=== PATIENT | female | born 1990 | race Caucasian/White ===

== ENCOUNTER 2016-07-09 19:34 | Emergency (ER) | payer OTHER ==
[~2016-07-09] VITALS: Ht 152.4 cm; Wt 75.0 kg
[~2016-07-09 19:34] MED LIST: GLUCOPHAGE1000 MG PO; NEXIUM 20MG20 MG PO; NORCO 325 MG-51 TAB PO; PROFERRIN ES12 MG PO; ZOCOR 10MG10 MG PO
[2016-07-09] MEDS ORDERED: ZOLOFT 100MG100 MG (19:39)
[2016-07-09] MEDS ORDERED: DESYREL 100MG100 MG (19:40)
[2016-07-09] MEDS ORDERED: NEXPLANON68 MG ID (19:40)
[2016-07-09 21:05] LABS: INFLUENZA B NEGATIVE
[2016-07-09] MEDS ORDERED: PREDNISONE20 MG PO (21:45)
[2016-07-09 21:54] VITALS: BP 106/69; PULSE 89; TEMP 97.8
== END 2016-07-09 21:56 | disposition home or self-care (01) ==
LOC: COL.ER 19:34
PROVIDERS: Nurse Practitioner
DX: J06.9 Acute upper respiratory infection, unspecified (principal); R59.0 Localized enlarged lymph nodes; J45.909 Unspecified asthma, uncomplicated
CPT/HCPCS: J7512

== ENCOUNTER → 2016-07-27 | Outpatient (CLI) | payer OTHER ==
[~2016-07-27] MED LIST changes: +B-12 100 MCG; +DESYREL 100MG100 MG; +IMITREX 25MG TA25 MG PO; +IMITREX 6M6 MG/0.5 M SQ; +LAMICTAL 25MG T25 MG PO; +MAGNESIUM CHELA27 MG; +NEXPLANON68 MG ID; +PREDNISONE20 MG PO; +PRILOSEC 20MG20 MG PO; +PROFE180 MG PO; +VITAMIN D 50,1.25 MG PO; +ZOLOFT 100MG100 MG
== END ==
LOC: BHSO 13:30
DX: F41.1 Generalized anxiety disorder (principal)

== ENCOUNTER 2017-02-22 21:57 | Emergency (ER) | payer OTHER ==
[~2017-02-22] VITALS: Ht 152.4 cm; Wt 84.1 kg
[~2017-02-22 21:57] MED LIST changes: -B-12 100 MCG; -IMITREX 25MG TA25 MG PO; -IMITREX 6M6 MG/0.5 M SQ; -LAMICTAL 25MG T25 MG PO; -MAGNESIUM CHELA27 MG; -PRILOSEC 20MG20 MG PO; -PROFE180 MG PO; -VITAMIN D 50,1.25 MG PO
[2017-02-22 21:59] VITALS: TEMP 98
[2017-02-22] MEDS ORDERED: PRILOSEC 20MG20 MG PO (22:04)
[2017-02-22] MEDS ORDERED: IMITREX 6M6 MG/0.5 M SQ (22:05)
[2017-02-22] MEDS ORDERED: PROFE180 MG PO (22:06)
[2017-02-22] MEDS ORDERED: MAGNESIUM CHELA27 MG (22:06)
[2017-02-22] MEDS ORDERED: B-12 100 MCG (22:06)
[2017-02-22] MEDS ORDERED: VITAMIN D 50,1.25 MG PO (22:06)
[2017-02-22] MEDS ORDERED: IMITREX 25MG TA25 MG PO (22:07)
[2017-02-22] MEDS ORDERED: LAMICTAL 25MG T25 MG PO (22:08)
[2017-02-22 23:51] LABS: PH 6 (5-8); URINE APPEARANCE Hazy; URINE BACTERIA Rare /hpf; URINE BILIRUBIN Negative (NEGATIVE); URINE BLOOD 1+ (NEGATIVE); URINE COLOR Straw; URINE GLUCOSE Negative (NEGATIVE); URINE KETONE Negative (NEGATIVE); URINE RBC 0-2 /hpf; URINE UROBILINOGEN Negative (NEGATIVE)
[2017-02-23] LABS: BASO # 0.1 (0.0-0.2); BASO % 0.4 % (0.0-2.0); EOS # 0.2 (0.0-0.7); EOS % 1.3 % (0-4.0); GRAN # 6.8 (1.4-6.5); GRAN % 58.7 % (42.2-75.2); HEMATOCRIT 40.6 % (37.0-47.0); LYMPH # 3.8 (1.2-3.4); LYMPH % 32.4 % (20.0-51.0); MEAN CELL VOLUME 83 fl (80.0-100.0); MEAN CORPUSCULAR HEMOGLOBIN 27 pg (27.0-31.0); MEAN CORPUSCULAR HGB CONC 32 g/dl (33.0-37.0); MEAN PLATELET VOLUME 9.7 fl (7.4-10.4); MONO # 0.8 (0.1-0.6); MONO % 6.9 % (1.7-9.3); PLATELET COUNT 309 K/mm3 (130-400); RED BLOOD COUNT 4.91 M/mm3 (4.10-5.30); REDCELL DISTRIBUTION WIDTH-CV 14.7 % (11.5-14.5); WHITE BLOOD COUNT 11.6 K/mm3 (4.8-10.8)
[2017-02-23 00:09] LABS: ADJUSTED CALCIUM 9.2 mg/dL (8.4-10.2); ALANINE AMINOTRANSFERASE 24 U/L (9-52); ALBUMIN 3.8 gm/dL (3.5-5.0); ALKALINE PHOSPHATASE 79 U/L (50-136); ANION GAP 10 mmol/L (7-16); BILIRUBIN,TOTAL 0.4 mg/dL (0.0-1.0); BLOOD UREA NITROGEN 10 mg/dL (7-17); CARBON DIOXIDE 24 mmol/L (22-30); CHLORIDE 103 mmol/L (98-107); CREATININE, serum 0.58 mg/dL (0.52-1.25); GLUCOSE 81 mg/dL (74-106); LIPASE 67 U/L (23-300); SODIUM 137 mmol/L (137-145)
[2017-02-23 00:10] LABS: C-REACTIVE PROTEIN < 0.5 mg/dL (0.0-0.9)
[2017-02-23 00:52] VITALS: BP 128/93; PULSE 102
== END 2017-02-23 00:50 | disposition home or self-care (01) ==
LOC: COL.ER 21:57
PROVIDERS: Family Medicine
DX: K92.2 Gastrointestinal hemorrhage, unspecified (principal); F41.9 Anxiety disorder, unspecified; F43.10 Post-traumatic stress disorder, unspecified; Z98.890 Other specified postprocedural states
CPT/HCPCS: J2405; J7030

== ENCOUNTER → 2017-04-25 | Outpatient (CLI) | payer OTHER ==
[~2017-04-25] MED LIST changes: +B-12 100 MCG; +IMITREX 25MG TA25 MG PO; +IMITREX 6M6 MG/0.5 M SQ; +LAMICTAL 25MG T25 MG PO; +MAGNESIUM CHELA27 MG; +PRILOSEC 20MG20 MG PO; +PROFE180 MG PO; +VITAMIN D 50,1.25 MG PO
== END ==
LOC: BHSO 11:29
DX: F41.1 Generalized anxiety disorder (principal)

== ENCOUNTER 2018-05-14 21:24 | Emergency (ER) | payer OTHER ==
[~2018-05-14] VITALS: Ht 152.4 cm; Wt 74.1 kg
[2018-05-15 00:11] VITALS: BP 125/70; PULSE 108; TEMP 98.5
== END 2018-05-15 00:21 | disposition home or self-care (01) ==
LOC: COL.ER 21:24
DX: G43.909 Migraine, unspecified, not intractable, without status migrainosus (principal); K22.70 Barrett's esophagus without dysplasia
CPT/HCPCS: J1200; J1885; J2765; J7030

== ENCOUNTER 2019-03-05 21:55 | Emergency (ER) | payer OTHER ==
[~2019-03-05] VITALS: Ht 152.4 cm; Wt 65.9 kg
[2019-03-05 22:13] VITALS: BP 145/90; TEMP 98.6
[2019-03-05] MEDS ORDERED: GLUCOPHAGE500 MG/TAB PO (22:17)
[2019-03-05 23:44] VITALS: PULSE 91
== END 2019-03-05 23:40 | disposition home or self-care (01) ==
LOC: COL.ER 21:55
DX: S60.221A Contusion of right hand, initial encounter (principal); Z79.84 Long term (current) use of oral hypoglycemic drugs; W20.8XXA Other cause of strike by thrown, projected or falling object, initial encounter

== ENCOUNTER 2019-04-25 16:17 | Emergency (ER) | payer OTHER ==
[~2019-04-25] VITALS: Ht 152.4 cm; Wt 63.6 kg
[~2019-04-25 16:17] MED LIST changes: +GLUCOPHAGE500 MG/TAB PO
[2019-04-25 16:42] VITALS: BP 129/73; TEMP 97.5
[2019-04-25 17:40] VITALS: PULSE 91
== END 2019-04-25 17:40 | disposition home or self-care (01) ==
LOC: COL.ER 16:17
DX: L30.9 Dermatitis, unspecified (principal); G43.909 Migraine, unspecified, not intractable, without status migrainosus

== ENCOUNTER 2019-10-20 10:01 | Emergency (ER) | payer OTHER ==
[~2019-10-20] VITALS: Ht 152.4 cm; Wt 65.9 kg
[2019-10-20 10:07] VITALS: BP 125/84; TEMP 98
[2019-10-20] MEDS ORDERED: LACRI-LUBE1 OIN OD (10:54)
[2019-10-20 11:51] VITALS: PULSE 109
== END 2019-10-20 11:51 | disposition home or self-care (01) ==
LOC: COL.ER 10:01 → EDBEDREQ 12:18
DX: D31.1 Benign neoplasm of cornea (principal); Z79.84 Long term (current) use of oral hypoglycemic drugs; F17.290 Nicotine dependence, other tobacco product, uncomplicated